=== PATIENT | male | born 1970 | race Asian ===

== ENCOUNTER 2019-03-15 16:03 | Inpatient (IN) | payer OTHER ==
[2019-03-15 17:18] LABS: ADD MAN DIFF? NO
[2019-03-15 17:23] LABS: ABNORMAL IP MESSAGE 1; BASOPHIL # 0.1 10^3/ul (0.0-0.1); BASOPHILS % 0.2 % (0.0-2.0); HEMATOCRIT 50.6 % (42.0-52.0); HEMOGLOBIN 17.2 g/dl (14.0-18.0); LYMPHOCYTES % 4.3 % (15.0-51.0); MEAN CORPUSCULAR HEMOGLOBIN 29.1 pg (29.0-33.0); MEAN CORPUSCULAR VOLUME 85.6 fl (82.0-101.0); MEAN PLATELET VOLUME 11.1 fl (7.4-10.4); MONOCYTE # 1.4 10^3/ul (0.3-0.9); MONOCYTES % 5.8 % (0.0-11.0); NEUTROPHIL # 21.4 10^3/ul (1.6-7.5); PLATELET COUNT 183 10^3/UL (140-415); POSITIVE DIFF @See below; RED BLOOD COUNT 5.91 10^6/ul (4.70-6.10); RED CELL DISTRIBUTION WIDTH 13.7 % (11.5-14.5)
[2019-03-15 17:23] LABS: WHITE BLOOD COUNT 24.1 10^3/ul (4.8-10.8)
[2019-03-15 17:41] LABS: ALBUMIN 4.9 g/dl (3.3-4.9); ALBUMIN/GLOBULIN RATIO 1.02; ALKALINE PHOSPHATASE 166 IU/L (42-121); ANION GAP 17 (5-13); ASPARTATE AMINO TRANSFERASE 33 IU/L (15-46); BILIRUBIN,INDIRECT 0.9 mg/dl (0-1.1); BILIRUBIN,TOTAL 0.9 mg/dl (0.2-1.3); BLOOD UREA NITROGEN 23 mg/dl (7-20); CALCIUM 10.2 mg/dl (8.4-10.2); CARBON DIOXIDE 25 mmol/L (21-31); CHLORIDE 98 mmol/L (97-110); CREATININE 1.56 mg/dl (0.61-1.24); Estimated GFR 47 mL/min (>60); GLUCOSE 183 mg/dl (70-220); LIPASE 142 U/L (23-300); POTASSIUM 3.8 mmol/L (3.5-5.1); SODIUM 140 mmol/L (135-144); TOTAL PROTEIN 9.7 g/dl (6.1-8.1)
[2019-03-15 17:47] LABS: ALANINE AMINOTRANSFERASE < 6 IU/L (13-69)
[2019-03-15 17:52] LABS: TROPONIN-I 0.062 ng/ml (0.000-0.120)
[2019-03-15] MEDS: ONDANSETRON 4 MG INJ IV ×2 (17:56→22:43)
[2019-03-15] MEDS: KETOROLAC 15 MG INJ IV (17:56)
[2019-03-15] MEDS: SOD CHLORIDE 0.9% 1,000 ML IV (17:58)
[2019-03-15] MEDS: LORAZEPAM 2 MG INJ IV ×2 (18:31→22:54)
[2019-03-15] MEDS: ENALAPRILAT 1.25 MG INJ IV (18:32)
[2019-03-15 18:40] LABS: ANISOCYTOSIS 1+ (0-0); LYMPHOCYTES #M 0.9 10^3/ul (0.8-2.9); LYMPHOCYTES % (M) 4 % (15-51); MICROCYTOSIS 1+ (0-0); MONOCYTE #M 1.4 10^3/ul (0.3-0.9); MONOCYTES % (M) 6 % (0-11); SEGMENTED NEUTROPHILS (M) % 90 % (39-77); SMUDGE%M 1 % (0-0)
[2019-03-15 19:07] LABS: ETHANOL < 10.0 mg/dl (0-0)
[2019-03-15] MEDS: NICARDipine HCL 30 MG CAPSULE PO (19:44)
[2019-03-15] MEDS ORDERED: NICARDipine HCL 30 MG CAPSULE PO (20:00)
[2019-03-15 20:19] LABS: AMPHETAMINE/METHAMPHETAMINE Negative (NEGATIVE); BARBITURATES Negative (NEGATIVE); BENZODIAZEPINES Negative (NEGATIVE); CANNABINOIDS Positive (NEGATIVE); COCAINE Negative (NEGATIVE); OPIATES Negative (NEGATIVE)
[2019-03-15] MEDS ORDERED: MAGNESIUM HYDROXIDE 30ML CUP PO (21:30)
[2019-03-15] MEDS ORDERED: ALBUTEROL/IPRATROPIUM (NEB) 3 ML AMP HHN (21:30)
[2019-03-15] MEDS ORDERED: NACL 0.9% 3 ML SYG IV (21:30)
[2019-03-15] MEDS ORDERED: NITROGLYCERIN (SL) 0.4 MG TAB SL (21:30)
[2019-03-15] MEDS: hydrALAzine 20 MG INJ IV (21:34)
[2019-03-15 22:10] LABS: FREE T4 (FREE THYROXINE) 1.91 ng/dl (0.64-1.79)
[2019-03-15] MEDS: SOD CHLORIDE 0.45% 1,000 ML IV (22:37)
[2019-03-15] MEDS: LEVOFLOXACIN 750MG/D5W (PMX) 150 ML IVPB (22:38)
[2019-03-15] MEDS: morphine 2 MG INJ IV (22:43)
[2019-03-16 01:18] LABS: ADD UMIC YES; UR ASCORBIC ACID NEGATIVE (NEGATIVE); UR BILIRUBIN (Dip) NEGATIVE (NEGATIVE); UR BLOOD (Dip) 2+ mg/dL (NEGATIVE); UR CLARITY SLIGHTLY CLOUDY (CLEAR); UR COLOR YELLOW (YELLOW); UR GLUCOSE (Dip) 1+ mg/dL (NEGATIVE); UR KETONES (Dip) NEGATIVE (NEGATIVE); UR LEUKOCYTE ESTERASE (Dip) NEGATIVE Leu/ul (NEGATIVE); UR MUCUS FEW /HPF (NONE SEEN); UR NITRITE (Dip) NEGATIVE (NEGATIVE); UR RBC 44 /HPF (0-5); UR SPECIFIC GRAVITY (Dip) 1.019 (1.003-1.030); UR TOTAL PROTEIN (Dip) 3+ mg/dl (NEGATIVE); UR UROBILINOGEN (Dip) NEGATIVE (NEGATIVE); UR WBC 2 /HPF (0-5)
[2019-03-16] MEDS ORDERED: hydrALAzine 20 MG INJ (04:24)
[2019-03-16] MEDS: hydrALAzine 20 MG INJ IV ×2 (04:28→21:46)
[2019-03-16] MEDS: AMLODIPINE 10 MG TAB PO (04:33)
[2019-03-16 06:20] LABS: ADD MAN DIFF? NO
[2019-03-16 06:25] LABS: ABNORMAL IP MESSAGE 1; BASOPHILS % 0.2 % (0.0-2.0); HEMATOCRIT 46.4 % (42.0-52.0); HEMOGLOBIN 15.5 g/dl (14.0-18.0); LYMPHOCYTES # 1.2 10^3/ul (0.8-2.9); LYMPHOCYTES % 4.9 % (15.0-51.0); MEAN CORPUSCULAR HEMOGLOBIN 28.4 pg (29.0-33.0); MEAN CORPUSCULAR HGB CONC 33.4 g/dl (32.0-37.0); MONOCYTE # 2.5 10^3/ul (0.3-0.9); MONOCYTES % 9.9 % (0.0-11.0); NEUTROPHIL # 20.9 10^3/ul (1.6-7.5); PLATELET COUNT 160 10^3/UL (140-415); POSITIVE DIFF @See below; RED BLOOD COUNT 5.46 10^6/ul (4.70-6.10); RED CELL DISTRIBUTION WIDTH 14.2 % (11.5-14.5)
[2019-03-16 06:25] LABS: WHITE BLOOD COUNT 24.8 10^3/ul (4.8-10.8)
[2019-03-16 06:46] LABS: HEMOGLOBIN A1C 5.5 % (0-5.9)
[2019-03-16 06:48] LABS: ANION GAP 12 (5-13); BLOOD UREA NITROGEN 30 mg/dl (7-20); CALCIUM 9.2 mg/dl (8.4-10.2); CARBON DIOXIDE 22 mmol/L (21-31); CHLORIDE 102 mmol/L (97-110); CREATININE 2.02 mg/dl (0.61-1.24); Estimated GFR 35 mL/min (>60); GLUCOSE 140 mg/dl (70-220); MAGNESIUM 1.7 mg/dl (1.7-2.5); PHOSPHORUS 4.3 mg/dl (2.5-4.9); POTASSIUM 3.7 mmol/L (3.5-5.1); SODIUM 136 mmol/L (135-144)
[2019-03-16 07:02] LABS: CHOLESTEROL 177 mg/dl (100-200)
[2019-03-16 07:02] LABS: CHOL/HDL RATIO 2.9 RATIO; HDL CHOLESTEROL 61 mg/dl (28-71); LDL CHOLESTEROL,CALCULATED 95 mg/dl; TRIGLYCERIDES 107 mg/dl (0-149)
[2019-03-16 07:35] LABS: THYROID STIMULATING HORMONE 0.672 MIU/L (0.465-4.680)
[2019-03-16] MEDS: SOD CHLORIDE 0.45% 1,000 ML IV ×2 (09:54→23:05)
[2019-03-16] MEDS: ONDANSETRON 4 MG INJ IV (09:55)
[2019-03-16] MEDS: LABETALOL HCL 20MG INJ IV ×2 (09:55→23:52)
[2019-03-16] MEDS: morphine 2 MG INJ IV (09:55)
[2019-03-16] MEDS: HEPARIN 5,000 UNIT/1 ML VIAL SC ×2 (09:58→20:52)
[2019-03-16] MEDS: HYDROCODONE/APAP (5/325) TAB PO ×2 (11:33→23:38)
[2019-03-16 15:24] LABS: ADD UMIC YES; UR ASCORBIC ACID NEGATIVE (NEGATIVE); UR BILIRUBIN (Dip) NEGATIVE (NEGATIVE); UR BLOOD (Dip) 1+ mg/dL (NEGATIVE); UR CLARITY SLIGHTLY CLOUDY (CLEAR); UR COLOR YELLOW (YELLOW); UR GLUCOSE (Dip) NEGATIVE (NEGATIVE); UR KETONES (Dip) NEGATIVE (NEGATIVE); UR LEUKOCYTE ESTERASE (Dip) NEGATIVE Leu/ul (NEGATIVE); UR MUCUS FEW /HPF (NONE SEEN); UR NITRITE (Dip) NEGATIVE (NEGATIVE); UR RBC 10 /HPF (0-5); UR SPECIFIC GRAVITY (Dip) 1.019 (1.003-1.030); UR TOTAL PROTEIN (Dip) 2+ mg/dl (NEGATIVE); UR UROBILINOGEN (Dip) NEGATIVE (NEGATIVE); UR WBC 2 /HPF (0-5)
[2019-03-16 15:56] LABS: SODIUM,URINE RANDOM < 13 mmol/L (30-90)
[2019-03-16] MEDS: LEVOFLOXACIN 750MG/D5W (PMX) 150 ML IVPB (20:42)
[2019-03-17] MEDS: LABETALOL HCL 20MG INJ IV (04:43)
[2019-03-17] MEDS: SOD CHLORIDE 0.45% 1,000 ML IV (04:44)
[2019-03-17] MEDS: morphine 2 MG INJ IV (04:54)
[2019-03-17 05:37] LABS: ADD MAN DIFF? NO
[2019-03-17 05:46] LABS: WHITE BLOOD COUNT 17.9 10^3/ul (4.8-10.8)
[2019-03-17 05:46] LABS: HEMATOCRIT 39.6 % (42.0-52.0); HEMOGLOBIN 13.3 g/dl (14.0-18.0); MEAN CORPUSCULAR HEMOGLOBIN 28.8 pg (29.0-33.0); MEAN CORPUSCULAR HGB CONC 33.6 g/dl (32.0-37.0); MEAN CORPUSCULAR VOLUME 85.7 fl (82.0-101.0); RED BLOOD COUNT 4.62 10^6/ul (4.70-6.10)
[2019-03-17 05:47] LABS: ABNORMAL IP MESSAGE 1; BASOPHILS % 0.1 % (0.0-2.0); EOSINOPHILS % 0.1 % (0.0-7.0); LYMPHOCYTES # 1.1 10^3/ul (0.8-2.9); LYMPHOCYTES % 6.3 % (15.0-51.0); MONOCYTES % 11.2 % (0.0-11.0); NEUTROPHIL # 14.7 10^3/ul (1.6-7.5); NEUTROPHILS % 81.8 % (39.0-77.0); PLATELET COUNT 111 10^3/UL (140-415); POSITIVE DIFF @See below; RED CELL DISTRIBUTION WIDTH 14.2 % (11.5-14.5)
[2019-03-17 06:08] LABS: ANION GAP 8 (5-13); BLOOD UREA NITROGEN 41 mg/dl (7-20); CALCIUM 8.9 mg/dl (8.4-10.2); CARBON DIOXIDE 26 mmol/L (21-31); CHLORIDE 100 mmol/L (97-110); CREATININE 1.87 mg/dl (0.61-1.24); Estimated GFR 38 mL/min (>60); GLUCOSE 156 mg/dl (70-220); POTASSIUM 3.6 mmol/L (3.5-5.1); SODIUM 134 mmol/L (135-144)
[2019-03-17] MEDS: AMLODIPINE 10 MG TAB PO (09:47)
[2019-03-17] MEDS: DOCUSATE SODIUM 100 MG CAP PO (09:47)
[2019-03-17] MEDS: HEPARIN 5,000 UNIT/1 ML VIAL SC ×2 (09:48→20:43)
[2019-03-17] MEDS: LABETALOL 200 MG TAB PO ×2 (12:19→20:36)
[2019-03-17] MEDS: HYDROCODONE/APAP (5/325) TAB PO (20:36)
[2019-03-18] MEDS: morphine 2 MG INJ IV (04:56)
[2019-03-18 06:13] LABS: ADD MAN DIFF? NO
[2019-03-18 06:20] LABS: ABNORMAL IP MESSAGE 1; BASOPHILS % 0.1 % (0.0-2.0); EOSINOPHILS % 0.1 % (0.0-7.0); HEMATOCRIT 38.7 % (42.0-52.0); HEMOGLOBIN 12.9 g/dl (14.0-18.0); LYMPHOCYTES # 1.3 10^3/ul (0.8-2.9); LYMPHOCYTES % 7.8 % (15.0-51.0); MEAN CORPUSCULAR HEMOGLOBIN 28.6 pg (29.0-33.0); MEAN CORPUSCULAR HGB CONC 33.3 g/dl (32.0-37.0); MEAN CORPUSCULAR VOLUME 85.8 fl (82.0-101.0); MEAN PLATELET VOLUME 12.6 fl (7.4-10.4); MONOCYTE # 1.8 10^3/ul (0.3-0.9); MONOCYTES % 10.9 % (0.0-11.0); NEUTROPHIL # 13.2 10^3/ul (1.6-7.5); NEUTROPHILS % 80.6 % (39.0-77.0); PLATELET COUNT 118 10^3/UL (140-415); POSITIVE DIFF @See below; RED BLOOD COUNT 4.51 10^6/ul (4.70-6.10); RED CELL DISTRIBUTION WIDTH 14.3 % (11.5-14.5)
[2019-03-18 06:20] LABS: WHITE BLOOD COUNT 16.4 10^3/ul (4.8-10.8)
[2019-03-18 07:06] LABS: ANION GAP 7 (5-13); BLOOD UREA NITROGEN 43 mg/dl (7-20); CALCIUM 8.9 mg/dl (8.4-10.2); CARBON DIOXIDE 26 mmol/L (21-31); CHLORIDE 101 mmol/L (97-110); CREATININE 1.75 mg/dl (0.61-1.24); Estimated GFR 41 mL/min (>60); GLUCOSE 136 mg/dl (70-220); POTASSIUM 3.8 mmol/L (3.5-5.1); SODIUM 134 mmol/L (135-144)
[2019-03-18] MEDS: LABETALOL 200 MG TAB PO ×2 (09:54→20:18)
[2019-03-18] MEDS: AMLODIPINE 10 MG TAB PO (09:54)
[2019-03-18] MEDS: HEPARIN 5,000 UNIT/1 ML VIAL SC ×2 (10:03→20:25)
[2019-03-18] MEDS: HYDROCODONE/APAP (5/325) TAB PO ×2 (10:27→20:19)
[2019-03-18] MEDS: OLANZAPINE (ODT) 5 MG TAB ODT (17:14)
[2019-03-18] MEDS: DOCUSATE SODIUM 100 MG CAP PO (20:19)
[2019-03-19] MEDS: hydrALAzine 20 MG INJ IV ×3 (00:54→11:15)
[2019-03-19] MEDS: HYDROCODONE/APAP (5/325) TAB PO ×2 (05:04→21:06)
[2019-03-19 05:25] LABS: ADD MAN DIFF? NO
[2019-03-19 05:31] LABS: ABNORMAL IP MESSAGE 1; BASOPHILS % 0.3 % (0.0-2.0); EOSINOPHILS % 0.2 % (0.0-7.0); HEMATOCRIT 38.6 % (42.0-52.0); HEMOGLOBIN 13.1 g/dl (14.0-18.0); LYMPHOCYTES # 1.4 10^3/ul (0.8-2.9); LYMPHOCYTES % 9.9 % (15.0-51.0); MEAN CORPUSCULAR HGB CONC 33.9 g/dl (32.0-37.0); MEAN CORPUSCULAR VOLUME 85.6 fl (82.0-101.0); MEAN PLATELET VOLUME 11.9 fl (7.4-10.4); MONOCYTE # 1.6 10^3/ul (0.3-0.9); MONOCYTES % 11.2 % (0.0-11.0); NEUTROPHIL # 11.3 10^3/ul (1.6-7.5); NEUTROPHILS % 77.9 % (39.0-77.0); PLATELET COUNT 150 10^3/UL (140-415); POSITIVE DIFF @See below; RED BLOOD COUNT 4.51 10^6/ul (4.70-6.10); RED CELL DISTRIBUTION WIDTH 14.3 % (11.5-14.5)
[2019-03-19 05:31] LABS: WHITE BLOOD COUNT 14.5 10^3/ul (4.8-10.8)
[2019-03-19 06:25] LABS: ANION GAP 9 (5-13); BLOOD UREA NITROGEN 37 mg/dl (7-20); CALCIUM 9.3 mg/dl (8.4-10.2); CARBON DIOXIDE 26 mmol/L (21-31); CHLORIDE 101 mmol/L (97-110); CREATININE 1.76 mg/dl (0.61-1.24); Estimated GFR 41 mL/min (>60); GLUCOSE 146 mg/dl (70-220); POTASSIUM 3.5 mmol/L (3.5-5.1); SODIUM 136 mmol/L (135-144)
[2019-03-19] MEDS: HEPARIN 5,000 UNIT/1 ML VIAL SC ×3 (09:00→21:12)
[2019-03-19] MEDS: DOCUSATE SODIUM 100 MG CAP PO ×2 (09:03→21:05)
[2019-03-19] MEDS: OLANZAPINE (ODT) 5 MG TAB ODT (09:04)
[2019-03-19] MEDS: AMLODIPINE 10 MG TAB PO (09:04)
[2019-03-19] MEDS: ACETAMINOPHEN 325 MG TAB PO (13:21)
[2019-03-19] MEDS: LABETALOL 200 MG TAB PO ×2 (14:52→21:08)
[2019-03-20] MEDS: LABETALOL 200 MG TAB PO ×3 (05:41→21:36)
[2019-03-20] MEDS: HYDROCODONE/APAP (5/325) TAB PO ×2 (05:41→19:44)
[2019-03-20 06:52] LABS: ANION GAP 9 (5-13); BLOOD UREA NITROGEN 34 mg/dl (7-20); CARBON DIOXIDE 26 mmol/L (21-31); CHLORIDE 102 mmol/L (97-110); CREATININE 1.67 mg/dl (0.61-1.24); Estimated GFR 44 mL/min (>60); GLUCOSE 120 mg/dl (70-220); POTASSIUM 3.7 mmol/L (3.5-5.1); SODIUM 137 mmol/L (135-144)
[2019-03-20] MEDS: OLANZAPINE (ODT) 5 MG TAB ODT (08:38)
[2019-03-20] MEDS: DOCUSATE SODIUM 100 MG CAP PO ×2 (08:38→20:27)
[2019-03-20] MEDS: AMLODIPINE 10 MG TAB PO (08:38)
[2019-03-20] MEDS: HEPARIN 5,000 UNIT/1 ML VIAL SC ×2 (08:42→20:33)
[2019-03-20 14:57] LABS: CREATININE, RANDOM URINE 144 mg/dL (20-320); MICROALBUMIN 15.1 mg/dL; MICROALBUMIN/CREATININE RATIO 105 (<30)
== END 2019-03-20 23:00 | disposition home or self-care (01) | DRG 305 ==
LOC: 6WM 20:18 → E/R 16:03
DX: I16.0 Hypertensive urgency (principal); N17.9 Acute kidney failure, unspecified; G93.40 Encephalopathy, unspecified; Z91.14 Patient's other noncompliance with medication regimen; D72.829 Elevated white blood cell count, unspecified; E86.0 Dehydration; R00.0 Tachycardia, unspecified; Z72.0 Tobacco use; Z91.19 Patient's noncompliance with other medical treatment and regimen; I71.4 Abdominal aortic aneurysm, without rupture; M89.9 Disorder of bone, unspecified; F29 Unspecified psychosis not due to a substance or known physiological condition; N18.9 Chronic kidney disease, unspecified; T60.91XA Toxic effect of unspecified pesticide, accidental (unintentional), initial encounter
CPT/HCPCS: 36415; 71045; 71046; 74176; 76775; 80048; 80053; 80061; 80307; 81001; 81003; 82043; 83036; 83690; 83735; 84100; 84155; 84300; 84439; 84443; 84484; 85025; 87086; 93005; 93306; 96374; 96375; 97162; 99285-25

== ENCOUNTER 2019-03-22 20:44 | Emergency (ER) | payer OTHER ==
[2019-03-22] MEDS: ONDANSETRON 4 MG INJ IV (22:42)
[2019-03-22] MEDS: SOD CHLORIDE 0.9% 1,000 ML IV (22:42)
[2019-03-22] MEDS: morphine 4 MG/ML VIAL IV (22:42)
[2019-03-22] MEDS: ACETAMINOPHEN 325 MG TAB PO (22:46)
[2019-03-22 22:52] LABS: ADD MAN DIFF? NO
[2019-03-22 22:55] LABS: ABNORMAL IP MESSAGE 1; BASOPHIL # 0.1 10^3/ul (0.0-0.1); BASOPHILS % 0.4 % (0.0-2.0); EOSINOPHILS # 0.4 10^3/ul (0.0-0.5); EOSINOPHILS % 2.9 % (0.0-7.0); HEMATOCRIT 34.2 % (42.0-52.0); HEMOGLOBIN 11.1 g/dl (14.0-18.0); LYMPHOCYTES # 1.4 10^3/ul (0.8-2.9); LYMPHOCYTES % 9.5 % (15.0-51.0); MEAN CORPUSCULAR HEMOGLOBIN 28.3 pg (29.0-33.0); MEAN CORPUSCULAR HGB CONC 32.5 g/dl (32.0-37.0); MEAN CORPUSCULAR VOLUME 87.2 fl (82.0-101.0); MEAN PLATELET VOLUME 10.4 fl (7.4-10.4); MONOCYTE # 1.6 10^3/ul (0.3-0.9); MONOCYTES % 11.1 % (0.0-11.0); NEUTROPHIL # 10.7 10^3/ul (1.6-7.5); NEUTROPHILS % 75.3 % (39.0-77.0); PLATELET COUNT 269 10^3/UL (140-415); POSITIVE DIFF @See below; RED BLOOD COUNT 3.92 10^6/ul (4.70-6.10); RED CELL DISTRIBUTION WIDTH 14.4 % (11.5-14.5)
[2019-03-22 22:55] LABS: WHITE BLOOD COUNT 14.1 10^3/ul (4.8-10.8)
[2019-03-22 23:19] LABS: ALANINE AMINOTRANSFERASE 74 IU/L (13-69); ALBUMIN 3.5 g/dl (3.3-4.9); ALBUMIN/GLOBULIN RATIO 0.87; ALKALINE PHOSPHATASE 167 IU/L (42-121); ANION GAP 12 (5-13); ASPARTATE AMINO TRANSFERASE 92 IU/L (15-46); BILIRUBIN,INDIRECT 0.4 mg/dl (0-1.1); BILIRUBIN,TOTAL 0.4 mg/dl (0.2-1.3); BLOOD UREA NITROGEN 31 mg/dl (7-20); CALCIUM 8.8 mg/dl (8.4-10.2); CARBON DIOXIDE 27 mmol/L (21-31); CHLORIDE 103 mmol/L (97-110); CREATININE 1.91 mg/dl (0.61-1.24); Estimated GFR 37 mL/min (>60); GLUCOSE 127 mg/dl (70-220); LIPASE 73 U/L (23-300); SODIUM 142 mmol/L (135-144); TOTAL PROTEIN 7.5 g/dl (6.1-8.1)
[2019-03-23 00:02] LABS: ADD UMIC YES; UR ASCORBIC ACID 40 mg/dL (NEGATIVE); UR BILIRUBIN (Dip) NEGATIVE (NEGATIVE); UR BLOOD (Dip) NEGATIVE (NEGATIVE); UR CLARITY SLIGHTLY CLOUDY (CLEAR); UR COLOR YELLOW (YELLOW); UR GLUCOSE (Dip) NEGATIVE (NEGATIVE); UR KETONES (Dip) NEGATIVE (NEGATIVE); UR LEUKOCYTE ESTERASE (Dip) NEGATIVE Leu/ul (NEGATIVE); UR MUCUS FEW /HPF (NONE SEEN); UR NITRITE (Dip) NEGATIVE (NEGATIVE); UR RBC 1 /HPF (0-5); UR SPECIFIC GRAVITY (Dip) 1.018 (1.003-1.030); UR TOTAL PROTEIN (Dip) 1+ mg/dl (NEGATIVE); UR UROBILINOGEN (Dip) NEGATIVE (NEGATIVE); UR WBC 1 /HPF (0-5)
[2019-03-23 00:45] LABS: B-TYPE NATRIURETIC PEPTIDE 3550 PG/ML (0-125)
[2019-03-23 00:45] LABS: TROPONIN-I 0.038 ng/ml (0.000-0.120)
[2019-03-23] MEDS: CEFEPIME 1GM/50 ML (PMX) 50 ML IVPB (01:19)
[2019-03-23] MEDS: VANCOMYCIN 1 GM (PMX) 250 ML IVPB (01:43)
[2019-03-23] MEDS ORDERED: ONDANSETRON 4 MG INJ IV ×2 (02:00→03:00)
[2019-03-23] MEDS ORDERED: ACETAMINOPHEN 325 MG TAB PO ×2 (02:00→03:00)
[2019-03-23] MEDS ORDERED: NACL 0.9% 3 ML SYG IV (03:00)
[2019-03-23] MEDS ORDERED: VANCOMYCIN IV PER PHARMACY XX (03:00)
[2019-03-23] MEDS ORDERED: DOCUSATE SODIUM 100 MG CAP PO (03:00)
[2019-03-23] MEDS: ONDANSETRON 4 MG INJ IV (05:46)
[2019-03-23] MEDS: HYDROmorphONE 1 MG/ML SYG IV (05:46)
[2019-03-23 06:02] LABS: ADD MAN DIFF? NO
[2019-03-23 06:05] LABS: ABNORMAL IP MESSAGE 1; BASOPHIL # 0.1 10^3/ul (0.0-0.1); BASOPHILS % 0.4 % (0.0-2.0); EOSINOPHILS # 0.5 10^3/ul (0.0-0.5); EOSINOPHILS % 3.1 % (0.0-7.0); HEMATOCRIT 33.1 % (42.0-52.0); HEMOGLOBIN 10.8 g/dl (14.0-18.0); LYMPHOCYTES # 2.5 10^3/ul (0.8-2.9); LYMPHOCYTES % 17.5 % (15.0-51.0); MEAN CORPUSCULAR HEMOGLOBIN 28.9 pg (29.0-33.0); MEAN CORPUSCULAR HGB CONC 32.6 g/dl (32.0-37.0); MEAN CORPUSCULAR VOLUME 88.5 fl (82.0-101.0); MEAN PLATELET VOLUME 10.8 fl (7.4-10.4); MONOCYTE # 1.9 10^3/ul (0.3-0.9); MONOCYTES % 13.4 % (0.0-11.0); NEUTROPHIL # 9.4 10^3/ul (1.6-7.5); PLATELET COUNT 256 10^3/UL (140-415); POSITIVE DIFF @See below; RED BLOOD COUNT 3.74 10^6/ul (4.70-6.10); RED CELL DISTRIBUTION WIDTH 14.4 % (11.5-14.5)
[2019-03-23 06:05] LABS: WHITE BLOOD COUNT 14.4 10^3/ul (4.8-10.8)
[2019-03-23 06:32] LABS: ALANINE AMINOTRANSFERASE 61 IU/L (13-69); ALBUMIN/GLOBULIN RATIO 0.83; ALKALINE PHOSPHATASE 137 IU/L (42-121); ANION GAP 7 (5-13); ASPARTATE AMINO TRANSFERASE 68 IU/L (15-46); BILIRUBIN,INDIRECT 0.6 mg/dl (0-1.1); BILIRUBIN,TOTAL 0.6 mg/dl (0.2-1.3); BLOOD UREA NITROGEN 29 mg/dl (7-20); CALCIUM 8.2 mg/dl (8.4-10.2); CARBON DIOXIDE 25 mmol/L (21-31); CHLORIDE 108 mmol/L (97-110); CREATININE 1.64 mg/dl (0.61-1.24); Estimated GFR 45 mL/min (>60); GLUCOSE 106 mg/dl (70-220); SODIUM 140 mmol/L (135-144); TOTAL PROTEIN 6.6 g/dl (6.1-8.1)
[2019-03-23] MEDS: HEPARIN 5,000 UNIT/1 ML VIAL SC (06:51)
[2019-03-23] MEDS: FUROSEMIDE 20 MG INJ IV (06:51)
[2019-03-23] MEDS: BISACODYL (EC) 5 MG TAB PO (06:51)
[2019-03-23] MEDS: DOCUSATE SODIUM 100 MG CAP PO ×2 (06:51→09:00)
[2019-03-23] MEDS: LABETALOL 200 MG TAB PO (06:55)
[2019-03-23] MEDS: POLYETHYLENE GLYCOL 17 GM PACKET PO ×2 (06:55→09:00)
[2019-03-23] MEDS: BISACODYL 30 ML ENEMA PR (06:55)
[2019-03-23 08:13] LABS: AMPHETAMINE/METHAMPHETAMINE Negative (NEGATIVE); BARBITURATES Negative (NEGATIVE); BENZODIAZEPINES Negative (NEGATIVE); CANNABINOIDS Positive (NEGATIVE); COCAINE Negative (NEGATIVE)
[2019-03-23] MEDS: CEFEPIME 2GM/50 ML (PMX) 50 ML IVPB (08:24)
[2019-03-23] MEDS: AMLODIPINE 10 MG TAB PO (08:25)
[2019-03-23] MEDS: OLANZAPINE (ODT) 5 MG TAB ODT (08:27)
[2019-03-23 08:30] LABS: OPIATES Positive (NEGATIVE)
[2019-03-23] MEDS: IOHEXOL 0 ML (09:16)
[2019-03-23] MEDS: SOD CHLORIDE 0.9% 100 ML (09:45)
[2019-03-23] MEDS: IODIXANOL LOCM 100 ML BTL (09:46)
[2019-03-23] MEDS: ALBUTEROL/IPRATROPIUM (NEB) 3 ML AMP HHN ×2 (10:00→13:00)
[2019-03-23] MEDS: ESMOLOL 250 ML IV (10:44)
[2019-03-23] MEDS: ESMOLOL 100 MG INJ IV ×2 (10:45→11:34)
[2019-03-23] MEDS: LORAZEPAM 0.5 MG TAB PO (11:12)
[2019-03-23 11:30] LABS: INR 1.07; PT RATIO 1.1
[2019-03-23] MEDS: niCARdipine-NS 0.1MG/ML DRIP 200 ML IV (13:55)
[2019-03-24] MEDS ORDERED: VANCOMYCIN 750 MG (PMX) 250 ML IVPB (01:00)
== END 2019-03-23 14:49 | disposition short-term general hospital (02) ==
LOC: E/R 20:44
DX: J18.9 Pneumonia, unspecified organism (principal); R10.12 Left upper quadrant pain; I10 Essential (primary) hypertension; F17.210 Nicotine dependence, cigarettes, uncomplicated
CPT/HCPCS: 36415; 71045; 71275; 74176; 75635; 76705; 80053; 80307; 81001; 83690; 83880; 84484; 85025; 85610; 85730; 87040-91; 93005; 94664; 96372; 96374; 96375; 96376; 99285-25